=== PATIENT | female | born 1970 | race Caucasian/White ===

== ENCOUNTER 2017-07-25 21:25 | Inpatient (IN) ==
[2017-07-25] MEDS ORDERED: AMPICILLIN/SULBACTAM 3,000 MG in SODIUM CHLORIDE 0.9% 100 ML IV STA (21:55)
[2017-07-25] MEDS ORDERED: CROTALIDAE SNAKE ANTIVENOM 4 VIAL in SODIUM CHLORIDE 0.9% 250 ML IV STA (22:40)
[2017-07-25] MEDS ORDERED: DIAZEPAM 10 MG/2 ML SYRINGE IV STA (23:03)
[2017-07-25] MEDS ORDERED: ONDANSETRON 4 MG/2 ML VIAL IV STA (23:03)
[2017-07-25] MEDS ORDERED: fentaNYL 100 MCG/2 ML VIAL IV ONE ×2 (23:33→23:54)
[2017-07-25 23:46] LABS: Basophils % 0.4 % (0.0-0.8); Eosinophils # 0.1 10*3/uL (0.0-0.87); Eosinophils % 1.2 % (0.00-10.9); Hematocrit 41.3 VOL% (35.7-47.0); Hemoglobin 13.8 GM/DL (12.0-16.0); Immature Granulocytes % 0.1 %; Immature Granulocytes Absolute 0.01 #; Lymphocytes # 2.8 10*3/uL (1.4-4.0); Lymphocytes % 35.1 % (21.3-54.2); Mean Corpuscular HGB Conc 33.4 GM/DL (32-36); Mean Corpuscular Hemoglobin 33 PG (27-34); Mean Platelet Volume 10.5 FL (9.6-12.0); Monocytes # 0.5 10*3/uL (0.11-0.8); Monocytes % 6.4 % (1.7-12.7); Neutrophils # 4.6 10*3/uL (1.4-7.4); Neutrophils % 56.8 % (38.7-73.9); Platelet Count 198 T/CUMM (130-400); Red Blood Count 4.17 MC/CUMM (3.8-5.5); Red Cell Distribution Width 12.7 % (9.3-17.3)
[2017-07-25 23:56] LABS: PT Patient Result 10.4 SECS; Partial Thromboplastin Time 25.1 SECS (0-40)
[2017-07-26 00:03] LABS: Alanine Aminotransferase 14 U/L (13-56); Albumin 3.8 G/DL (3.4-5.0); Alkaline Phosphatase 49 U/L (45-117); Aspartate Amino Transferase 11 U/L (0-37); Bilirubin,Total < 0.39 MG/DL (0.2-1.0); Blood Urea Nitrogen 20 MG/DL (7-18); Calcium 9.3 MG/DL (8.5-10.1); Glucose 94 MG/DL (74-106); Osmolality,Calculated 283.3 MOS/KG (273-304); Potassium 4.1 MMOL/L (3.5-5.1); Sodium 141 MMOL/L (136-145); Total Protein 6.8 G/DL (6.4-8.3)
[2017-07-26] MEDS ORDERED: PROMETHAZINE INJ 25 MG in SODIUM CHLORIDE 0.9% 50 ML IV ONE (00:08)
[2017-07-26] MEDS ORDERED: MEPERIDINE 50 MG/1 ML VIAL IV ONE (00:09)
[2017-07-26] MEDS ORDERED: PROMETHAZINE 25 MG/1 ML VIAL IM PRN (01:14)
[2017-07-26] MEDS ORDERED: ACETAMINOPHEN 325 MG TABLET PO PRN (01:14)
[2017-07-26] MEDS ORDERED: ONDANSETRON 4 MG/2 ML VIAL IV PRN (01:14)
[2017-07-26] MEDS ORDERED: fentaNYL 100 MCG/2 ML VIAL IV PRN (01:14)
[2017-07-26] MEDS: SODIUM CHLORIDE 0.9% 1,000 ML IV SCH ×3 (01:36→18:25)
[2017-07-26 02:02] LABS: Basophils % 0.3 % (0.0-0.8); Eosinophils # 0.1 10*3/uL (0.0-0.87); Eosinophils % 0.8 % (0.00-10.9); Hematocrit 44.7 VOL% (35.7-47.0); Hemoglobin 14.7 GM/DL (12.0-16.0); Immature Granulocytes % 0.5 %; Immature Granulocytes Absolute 0.05 #; Lymphocytes % 29.9 % (21.3-54.2); Mean Corpuscular HGB Conc 32.9 GM/DL (32-36); Mean Corpuscular Hemoglobin 33 PG (27-34); Mean Corpuscular Volume 100.9 FL (87-102); Mean Platelet Volume 10.2 FL (9.6-12.0); Monocytes # 0.6 10*3/uL (0.11-0.8); Monocytes % 5.5 % (1.7-12.7); Neutrophils # 6.3 10*3/uL (1.4-7.4); Platelet Count 214 T/CUMM (130-400); Red Blood Count 4.43 MC/CUMM (3.8-5.5); Red Cell Distribution Width 12.7 % (9.3-17.3)
[2017-07-26 02:11] LABS: PT Patient Result 10.3 SECS
[2017-07-26 02:26] LABS: Alanine Aminotransferase 13 U/L (13-56); Albumin 3.7 G/DL (3.4-5.0); Alkaline Phosphatase 45 U/L (45-117); Aspartate Amino Transferase 11 U/L (0-37); Bilirubin,Total < 0.39 MG/DL (0.2-1.0); Blood Urea Nitrogen 18 MG/DL (7-18); Calcium 8.7 MG/DL (8.5-10.1); Glucose 96 MG/DL (74-106); Osmolality,Calculated 284.1 MOS/KG (273-304); Potassium 3.9 MMOL/L (3.5-5.1); Sodium 142 MMOL/L (136-145); Total Protein 6.8 G/DL (6.4-8.3)
[2017-07-26] MEDS ORDERED: SODIUM CHLORIDE 0.9% 1,000 ML IV ONE (04:28)
[2017-07-26] MEDS: AMPICILLIN/SULBACTAM 1,500 MG in SODIUM CHLORIDE 0.9% 100 ML IV SCH ×4 (04:42→22:25)
[2017-07-26] MEDS ORDERED: PANTOPRAZOLE 40 MG VIAL IV SCH (09:00)
[2017-07-27] MEDS: AMPICILLIN/SULBACTAM 1,500 MG in SODIUM CHLORIDE 0.9% 100 ML IV SCH ×2 (03:08→10:05)
[2017-07-27 13:10] VITALS: BP 102/63
== END 2017-07-27 15:55 | disposition home or self-care (01) | DRG 918 ==
LOC: N.ED 21:25 → N.EDINP 23:01 → N.CC 23:49 → N.4E 07-26 18:51
PROVIDERS: ADMIT Internal Medicine; ATTEND Internal Medicine